=== PATIENT | female | born 1960 | race Two or more races ===

== ENCOUNTER 2023-11-20 08:18 | Day surgery (SDC) | payer MEDICAID ==
[2023-11-13 10:27] LABS: Urine Epithelial Cast None Seen /hpf (<5)
[2023-11-13 10:32] LABS: Basophils # (auto) 0.1 10 ^3/uL (0-0.2); Basophils % (auto) 0.9 % (0.0-2.0); Eosinophils # (auto) 0.2 10 ^3/uL (0-0.8)
[2023-11-13 10:33] LABS: Eosinophils % (auto) 1.6 % (0.0-7.0); Hematocrit 38.8 % (36.0-46.0); Hemoglobin 12.5 g/dL (12.2-16.2); Lymphocytes % (auto) 28.9 % (10.0-50.0); Mean Corpuscular Hgb Conc. 32.2 g/dL (32.0-36.0); Monocytes # (auto) 0.6 10 ^3/uL (0-1.3); Monocytes % (auto) 5.5 % (0.0-12.0); Neutrophils # (auto) 6.5 10 ^3/uL (1.6-8.6); Neutrophils % (auto) 63.1 % (37.0-80.0); Red Blood Cells 4.62 10^6/uL (4.0-5.20); Red Cell Distribution Width 16.8 % (11.8-14.3); White Blood Cell 10.3 10^3/uL (4.4-10.8)
[2023-11-13 10:54] LABS: Urine Bacteria FEW /hpf (None Seen); Urine Blood Negative /uL (Negative); Urine Clarity Clear (Clear); Urine Color Yellow (Yellow); Urine Protein, UAD Negative (Negative); Urine Specific Gravity 1.011 (1.001-1.035); Urine Urobilinogen Normal (Negative); Urine WBC 2 /hpf (0 - 5); Urine pH 6.5 (5.0-8.0)
[2023-11-13 11:04] LABS: Alanine Aminotransferase 26 U/L (7-40); Albumin 4.4 g/dL (3.2-4.8); Alkaline Phosphatase 119 U/L (46-116); Anion Gap 6 (5-15); Aspartate Aminotransferase 26 U/L (13-40); BUN/Creatinine Ratio 11.4 (10.0-20.0); Blood Urea Nitrogen 10 mg/dL (9-23); Calcium 9.6 mg/dL (8.5-10.1); Carbon Dioxide 26 mmol/L (20-30); Chloride 106 mmol/L (98-107); Glucose 94 mg/dL (74-106); Sodium 138 mmol/L (136-145)
[2023-11-13 11:05] LABS: Total Protein 7.5 g/dL (5.7-8.2)
[2023-11-13 11:24] LABS: INR 0.96 (0.9-1.15); Prothrombin Time 10.1 sec (9.3-11.8)
[~2023-11-20] VITALS: Ht 165.1 cm; Wt 136.1 kg
[~2023-11-20 08:18] MED LIST: ACET-1304 PO; ASPI81CH59 PO; BENA20TA12 PO; BUPR-133 PO; CHOL200064 PO; LIRA18IN2 SC; MAGN400T40 OR; ROPI2TAB6 PO; SIMV10TA20 PO
[2023-11-20] MEDS ORDERED: PROPOFOL 10 MG/ML 20 ML IV ONE ×2 (09:32→09:39)
[2023-11-20 09:56] VITALS: PULSE 89; RESP 19; TEMP 98.4; O2SAT 98
[2023-11-20 10:15] VITALS: BP 93/66; PULSE 89; RESP 16; O2SAT 98
== END 2023-11-20 10:30 | disposition home or self-care (01) ==
LOC: GI 08:18
PROVIDERS: ATTEND Internal Medicine Gastroenterology
DX: R19.5 Other fecal abnormalities (principal); K64.8 Other hemorrhoids; K63.5 Polyp of colon; I10 Essential (primary) hypertension; E78.5 Hyperlipidemia, unspecified; E66.9 Obesity, unspecified; Z68.42 Body mass index [BMI] 45.0-49.9, adult; Z98.890 Other specified postprocedural states
CPT/HCPCS: 36415; 45380; 80053; 81001; 85025; 85610; 85730; J2704; J7030